=== PATIENT | female | born 1955 | race Caucasian/White ===

== ENCOUNTER 2024-08-27 09:29 | Emergency (ER) | payer MEDICARE ==
[~2024-08-27] VITALS: Ht 167.6 cm; Wt 90.7 kg
[2024-08-27] MEDS ORDERED: diphenhydrAMINE 50 MG/1 ML VIAL ONE (10:50)
[2024-08-27] MEDS ORDERED: HYDROMORPHONE 1 MG/1 ML DISP.SYRIN ONE ×2 (10:51→14:31)
[2024-08-27 10:56] LABS: BASOPHILS % (AUTO) 0.2 % (0.0-2.0); EOSINOPHILS % (AUTO) 0.4 % (0.0-7.0); HEMATOCRIT 48.8 % (31.2-41.9); HEMOGLOBIN 16.1 g/dL (10.9-14.3); LYMPHOCYTES # (AUTO) 1.8 K/uL (0.8-4.8); MEAN CORPUSCULAR HEMOGLOBIN 29.2 uug (24.7-32.8); MEAN CORPUSCULAR HGB CONC 33 g/dL (32.3-35.6); MEAN CORPUSCULAR VOLUME 88.5 fL (75.5-95.3); MONOCYTES # (AUTO) 0.5 K/uL (0.1-1.30); MONOCYTES % (AUTO) 7.1 % (0.0-11.0); NEUTROPHILS # (AUTO) 5.2 K/uL (1.8-8.9); NEUTROPHILS % (AUTO) 68.3 % (38.5-71.5); PLATELET COUNT (AUTO) 156 K/uL (179-408); RED BLOOD CELL COUNT(AUTO) 5.51 MIL/uL (3.63-4.92); RED CELL DISTRIBUTION WIDTH 15.7 % (12.3-17.7); WHITE BLOOD COUNT (AUTO) 7.6 K/uL (3.8-11.8)
[2024-08-27 10:58] LABS: DIFFERENTIAL COMMENT 1
[2024-08-27] MEDS: HYDROMORPHONE 1 MG/1 ML DISP.SYRIN IV ONE ×2 (10:58→14:31)
[2024-08-27] MEDS: diphenhydrAMINE 50 MG/1 ML VIAL IV ONE (10:58)
[2024-08-27 11:05] LABS: CALCIUM 9.3 mg/dL (8.5-10.1); CARBON DIOXIDE 27 mmol/L (21-32); CHLORIDE 104 mmol/L (98-107); CREATININE 0.8 mg/dL (0.6-1.3); GLUCOSE 82 mg/dL (74-106); POTASSIUM 3.9 mmol/L (3.5-5.1); SODIUM SERUM 143 mmol/L (136-145); UREA NITROGEN, BLOOD 13 mg/dL (7-18)
[2024-08-27 11:17] LABS: *BILIRUBIN,URIN NEGATIVE (NEGATIVE); *CLARITY,URINE CLEAR (CLEAR); *COLOR,URINE YELLOW (YELLOW); *KETONES,URINE NEGATIVE (NEGATIVE); *PROTEIN,URINE NEGATIVE (NEGATIVE); *UROBILINOGEN,URINE 0.2 E.U./dl (NORMAL); LEUKOCYTE ESTERASE ,URINE NEGATIVE (NEGATIVE); NITRITE, URINE NEGATIVE (NEGATIVE); UGLUCOSE NEGATIVE (NEGATIVE)
[2024-08-27 11:18] LABS: ALANINE AMINOTRANSFERASE 31 U/L (14-59); ALBUMIN 3.9 g/dL (3.4-5.0); ALKALINE PHOSPHATASE 79 U/L (50-136); ASPARTATE AMINOTRANSFERASE 21 U/L (15-37); BILIRUBIN,DIRECT 0.3 mg/dL (0.0-0.2); BILIRUBIN,TOTAL 0.9 mg/dL (0.2-1.0); NT-PRO BNP 794 pg/mL (0-125); TOTAL PROTEIN, SERUM 7.2 g/dL (6.4-8.2)
[2024-08-27 11:21] LABS: *BLOOD, URINE TRACE (NEGATIVE); BACTERIA,URINE FEW /HPF (NONE SEEN); SQUAMOUS EPITHELIAL CELL,UR FEW /HPF (NONE SEEN); WBC,URINE 0-3 /HPF (0-3)
[2024-08-27 12:47] LABS: ABG BASE EXCESS 0.8 mmol/L (-2.0-3.0); ABG HCO3 22.7 mmol/L (21.0-28.0); ABG PCO2 29.9 mmHg (32.0-45.0); ABG PH 7.499 (7.350-7.450); ABG PO2 70.1 mmHg (83.0-108.0); ABG SITE RIGHT RADIAL; ABG TOTAL HEMOGLOBIN 16.4 G/dL (12.0-16.0); AaDO2 95.6 mmHg; COHb 0.4 % (0.5-1.5); MetHb 0.3 % (0.0-1.5); O2Hb 94.2 % (94.0-98.0)
[2024-08-27] MEDS ORDERED: SEMA0.25 SQ (13:37)
[2024-08-27] MEDS ORDERED: ALPR1TAB7 PO (13:37)
[2024-08-27] MEDS ORDERED: PILO15DR35 EACHEYE (13:37)
[2024-08-27] MEDS ORDERED: HYDR-4322 PO (13:37)
[2024-08-27] MEDS ORDERED: MODA200T44 PO (13:37)
[2024-08-27] MEDS ORDERED: HYDR4TAB6 MT (13:37)
[2024-08-27] MEDS ORDERED: TRAM50TA PO (13:37)
[2024-08-27] MEDS ORDERED: SIME80TA15 PO (13:37)
[2024-08-27] MEDS ORDERED: CHOL12502 PO (13:37)
[2024-08-27] MEDS ORDERED: BUPR-53 PO (13:37)
[2024-08-27] MEDS ORDERED: GABA300C PO (13:37)
[2024-08-27] MEDS ORDERED: TOBR5DRO46 EACHEYE (13:37)
[2024-08-27] MEDS ORDERED: CYCL5TAB PO (13:37)
[2024-08-27] MEDS ORDERED: LEVO75TA PO (13:37)
[2024-08-27] MEDS ORDERED: LEVO50TA8 PO (13:43)
[2024-08-27] MEDS ORDERED: ROSU20TA2 PO (13:43)
[2024-08-27] MEDS ORDERED: APIX2.5T PO (13:43)
[2024-08-27] MEDS ORDERED: LEVO75TA7 PO (13:43)
[2024-08-27] MEDS ORDERED: ONDANSETRON 4 MG/2 ML VIAL ONE (14:31)
[2024-08-27] MEDS: ONDANSETRON 4 MG/2 ML VIAL IV ONE (14:32)
[2024-08-27] MEDS ORDERED: hydrALAZINE HCL 20 MG/1 ML VIAL IV ONE (17:15)
[2024-08-27 17:32] VITALS: BP 151/91; O2SAT 95
== END 2024-08-27 15:22 | disposition short-term general hospital (02) ==
LOC: ER 09:52
DX: M54.6 Pain in thoracic spine (principal); R20.0 Anesthesia of skin; R20.2 Paresthesia of skin; E03.9 Hypothyroidism, unspecified; I10 Essential (primary) hypertension; J45.909 Unspecified asthma, uncomplicated; Z79.01 Long term (current) use of anticoagulants; Z79.899 Other long term (current) drug therapy; Z85.820 Personal history of malignant melanoma of skin; Z88.1 Allergy status to other antibiotic agents; Z88.2 Allergy status to sulfonamides; Z88.5 Allergy status to narcotic agent; Z90.710 Acquired absence of both cervix and uterus; Z96.643 Presence of artificial hip joint, bilateral; Z60.2 Problems related to living alone
CPT/HCPCS: 99285; 71250; 96374; 96375; 71045; 80076; 80048; 81001; 83880; 85025; 84145; 85651; 85730; 87040 ×2; 87086; 84484; 36415; 74176; 93005; 96376; 83605; 36600 ×2; J1171 ×2; J1200; J2405; 94760; A4606; A4663